=== PATIENT | male | born 1980 | race Caucasian/White ===

== ENCOUNTER 2019-07-03 08:56 | Outpatient (CLI) | payer OTHER, SELFPAY ==
--- NOTE | 2019-07-03 09:15 | MR_ITS ---
WS: [id number] MRI LEFT SHOULDER NONCONTRAST TECHNIQUE: Sagittal T2, coronal T1, T2 and proton density imaging. Axial gradient PDE imaging. CLINICAL INFORMATION: left shoulder pain COMPARISON: None. FINDINGS: Moderate hypertrophic changes at the AC joint. Mild downsloping of the acromion. Distal supraspinatus is normal. Normal infraspinatus. Normal teres minor. Normal subscapularis. Normal biceps tendon in the bicipital groove. Slight irregularity of the anterior superior glenoid la gaudencio with suggestion of a tiny labral tear. Normal biceps labral anchor. No other abnormalities. MR/MR shoulder LT wo con* 22055 IMPRESSION: 1. Moderate degenerative arthritis at the AC joint with mild downsloping of th e acromion. 2. Rotator cuff is normal in appearance. 3. Suggestion of a tiny anterior superior labral tear. Normal biceps labral an chor. 4. Normal biceps tendon in the bicipital groove.
== END 2019-07-03 08:57 | disposition home or self-care (01) ==
LOC: RADWPI 09:03
PROVIDERS: PCP Emergency Medicine Emergency Medical Services; Visit Provider Orthopaedic Surgery
DX: M19.012 Primary osteoarthritis, left shoulder (principal)
CPT/HCPCS: 73221

== ENCOUNTER → 2020-01-15 10:12 | Outpatient (BNVA) | payer OTHER, SELFPAY | PROVIDERS: PCP Emergency Medicine Emergency Medical Services; Visit Provider Internal Medicine | DX: J06.9 Acute upper respiratory infection, unspecified (principal); Z20.818 Contact with and (suspected) exposure to other bacterial communicable diseases | CPT/HCPCS: 87635 ==

== ENCOUNTER → 2020-02-17 14:36 | Outpatient (BNVA) | payer OTHER, SELFPAY | PROVIDERS: PCP Emergency Medicine Emergency Medical Services; Visit Provider Nurse Practitioner Family | DX: J06.9 Acute upper respiratory infection, unspecified (principal) | CPT/HCPCS: 87635 ==

== ENCOUNTER → 2020-03-06 12:33 | Outpatient (BNVA) | payer OTHER, SELFPAY | PROVIDERS: PCP Emergency Medicine Emergency Medical Services; Visit Provider Nurse Practitioner Family | DX: Z20.828 Contact with and (suspected) exposure to other viral communicable diseases (principal) | CPT/HCPCS: 87635 ==

== ENCOUNTER → 2021-05-30 15:26 | Outpatient (BNVA) | payer OTHER, SELFPAY | PROVIDERS: PCP Emergency Medicine Emergency Medical Services; Visit Provider Surgery | DX: S30.817A Abrasion of anus, initial encounter (principal); X58.XXXA Exposure to other specified factors, initial encounter; Z20.822 Contact with and (suspected) exposure to COVID-19 | CPT/HCPCS: 87635 ==

== ENCOUNTER 2021-06-02 07:14 | Day surgery (SDC) | payer OTHER, SELFPAY ==
[2021-05-30 13:44] VITALS: BMI 29.1
--- NOTE | 2021-06-02 07:51 | ANES.PREANE2 ---
Pre-Anesthetic Assessment Pre-Anesthetic Assessment: Height/Weight: Height 1.83 m Weight 97.522 kg Preop Diagnosis: Bleeding per rectum Proposed Procedure: Operation Date: 06/02/21 08:45 Proposed Procedures p Colonoscopy 23420 S30.817A(Not Applicable) - Justin Bronson MD Was Beta Magaly taken within 24 hours: N/A Was Clonidine taken within 24 hours: N/A Social: Social History: No alcohol and No tobacco Exam: Pre-Anes Outpt Exam: alert, oriented x 3, clear to auscultation bilaterally and regular rate & rhythm Airway: Cervical ROM: WNL MP: 2 Dentition: Other History/ROS: No significant history except as noted and No significant complaints Pulmonary: Pulmonary: None reported CV/HEM: CV/HEM: HTN : : None reported Hepatic: Hepatic: None reported GI: GI: None reported Metabolic: Metabolic: None reported Musc/skel: Musc/skel: Weakness Neuropsych: Neuropsych: None reported Anesthetic Plan: ASA status: 2 Anesthesia: Anesthesia Evaluation, General and MAC Other: We discussed risk, benefits, and spectrum of MAC anesthesia including possible conversion to general as well as possible intraop recall of stimuli/pain. Patient agrees to proceed with MAC. Risk of > 500 ml blood loss (7ml/kg in children): No PFSH Anesthesia PFSH: Family History Sister Seizure disorder Mother Heart disease Denies family history of Diabetes CAD (coronary artery disease) Clotting disorder Dementia Hyperlipidemia Psychiatric illness Chronic kidney disease (CKD) Suicide Anesthesia complication Bleeding disorder Family history of premature coronary artery disease Lung disease Cancer Hypertension Stroke Social History Smoking and tobacco status: former smoker Alcohol intake: current Alcohol intake frequency: few times a week Current occupational status: retired Data Anesthesia Cardiac Studies: No Data to Display
[2021-06-02 08:11] VITALS: BP 113/81; PULSE 67; RESP 18; TEMP 36.1; O2SAT 97
[2021-06-02] MEDS: sodium chloride 0.9% 1,000 ML 30 ML IV (08:22)
--- NOTE | 2021-06-02 08:27 | P.HP_ITS ---
Same Day Surgery H&P Indication for Procedure/HPI DATE OF PROCEDURE: June 02, 2021 CHIEF COMPLAINT/INDICATIONFOR SURGICAL PROCEDURE: Blood in stool PREOP DIAGNOSIS: Bleeding per rectum PLANNED PROCEDRUE: Operation Date: 06/02/21 08:45 Proposed Procedures p Colonoscopy 47942 S30.817A(Not Applicable) - Justin Bronson MD 08/30/2020. This is a pleasant 40 years old gentleman referred to my practice with history of hemorrhoids with the patient reports that he has raw perianal area and has been responding to Lamisil pill application yet patient's was referred for surgery for further evaluation to address patient's concerns. Patient has reported in the past have some pain associated with defecation but currently he denies any symptoms and no evidence of bleeding per rectum. And there was a concern that the patient may have pinworms as he does work around animals at the farm. Patient denies any situational symptoms. 03/24/2021 Patient comes today and he continues to have perianal excoriation. And does give history of bleeding per rectum and he is gassy and bloated all the time. Patient never had a colonoscopy before. And no obvious history of colon cancer. Was seen and evaluated by his primary care provider was placed on antifungal medications. Interim history 06/02/2021 Patient comes today for diagnostic colonoscopy, patient reports that the excoriation is gone ROS All systems have been reviewed negative except as for the above or per problem list Medications/Allergies* Home Medications Medication Instructions Recorded Confirmed Type albuterol sulfate 90 mcg/actuation 2 inh INHALATION Q6H PRN 06/26/19 05/30/21 History breath activated powder inhaler cholecalciferol (vitamin D3) 50 50 mcg PO DAILY 06/26/19 05/30/21 History mcg (2,000 unit) capsule loratadine 10 mg capsule 10 mg PO DAILY 06/26/19 05/30/21 History ascorbic acid (vitamin C) 1,000 mg 1 gm PO DAILY tab 03/06/20 05/30/21 History tablet multivitamin,[id number] 1 tab PO DAILY 03/06/20 05/30/21 History Allergies/Adverse Reactions Allergy/AdvReac Type Severity Reaction Status Date / Time No Known Allergies Allergy Verified 03/24/21 10:54 Current Medications: Generic Name Dose Route Start Last Admin Trade Name Freq PRN Reason Stop Dose Admin Sodium Chloride 1,000 mls @ 30 mls/hr 06/02/21 08:00 06/02/21 08:22 Sodium Chloride 0.9% IV 30 mls/hr .Q24H JUDY Administration Pertinent History/Comorbid Conditions* Family History (Updated 06/26/19 @ 09:28 by Ita Chavez LPN) Heart disease Mother Seizure disorder Sister Denies family history of Diabetes CAD (coronary artery disease) Clotting disorder Dementia Hyperlipidemia Psychiatric illness Chronic kidney disease (CKD) Suicide Anesthesia complication Bleeding disorder Family history of premature coronary artery disease Lung disease Cancer Hypertension Stroke Social History Smoking and tobacco status: former smoker Alcohol intake: current Alcohol intake frequency: few times a week Current occupational status: retired Pertinent Exam Findings alert and procedure specific exam findings (Abdominal examination nontender distended soft) Recommendations Surgery/Procedure today (Colonoscopy) Other Plans: Plan of care; After thorough history and physical examination and reviewing the chart, plan to perform diagnostic colonoscopy. I discussed with the patient in details the risks,benefits,alternatives and indications.The risk of aspiration, bleeding, soft tissue injury, perforation of the colon and other potential concomitant complications were explained to the patient in details,also the potential need for Laproscoy/Laparotomy to repair any related complications including but not limited to colectomy and or Closotomy.The patient understood this well and did agree to proceed. Rationale was carefully and clearly discussed with the patient.Appropriate informed consent have been reviewed and signed All questions have been answered and all concerns have been addressed to patient's satisfaction. Verbal and written Instructions were given to the patient for colonoscopy prep Coding Level of Care Code Acute [employer] for Sangita Ibrahim
[2021-06-02 09:11] VITALS: BP 111/83; PULSE 74; RESP 16; TEMP 36.1; O2SAT 95
[2021-06-02 09:30] VITALS: BP 125/83; PULSE 84; RESP 18; O2SAT 98
--- NOTE | 2021-06-02 10:32 | ANE.PACU2 ---
Inpatient post-anesthesia follow up: Airway intact: Yes Vital signs: Temperature 97.0 F Pulse Rate 84 Respiratory Rate 18 Blood Pressure 125/83 Pulse Oximetry 98 Oxygen Delivery Me thod Room Air Oxygen Flow Rate Fraction of Inspir ed Oxygen Hydration adequate: Yes Nausea and vomiting: No Pain level: 1 Mental status: Baseline
== END 2021-06-02 09:51 | disposition home or self-care (01) ==
PROVIDERS: PCP Emergency Medicine Emergency Medical Services; Visit Provider Surgery
PROC: 0DJD8ZZ Inspection of Lower Intestinal Tract, Via Natural or Artificial Opening Endoscopic (ICD-10-PCS; CPT 45378; principal; 2021-06-02 08:45)
DX: S30.817A Abrasion of anus, initial encounter (principal); X58.XXXA Exposure to other specified factors, initial encounter; K92.1 Melena; I10 Essential (primary) hypertension; Z82.49 Family history of ischemic heart disease and other diseases of the circulatory system; Z87.891 Personal history of nicotine dependence
CPT/HCPCS: 45378; J2704; J7030